=== PATIENT | female | born 1975 | race Caucasian/White ===

== ENCOUNTER 2016-07-09 13:11 | Inpatient (IN) | payer OTHER ==
--- NOTE | ~2016-07-09 | HP ---
History And Physical [facility] [address] [facility] [place]. [address] NAME: HAYLEY MAGAÑA : 73 STATUS : ADM IN [facility]#: [id number] AGE: 40 ADM/REG DATE : 07/09/16 MR#: [id number] REPORT SERV DATE: 07/09/16 DICTATED BY: NATALIIA KUMARI DATE: 07/09/16 REPORT STATUS : Draft TRANSCRIBED BY: DANNY DATE: 07/09/16 DATE OF ADMISSION: 07/09/2016 CHIEF COMPLAINT: Abnormal vaginal bleeding, weakness, symptomatic anemia. HISTORY OF PRESENT ILLNESS: This is a very pleasant 40 years old female, who has no significant past medical history. She though has had experienced heavy periods since October 2015. Her periods are lasting about 10 days every month and for the last couple of weeks, although her cycles are fairly regular, she started to become fatigued, dizzy, somewhat weak, and short of breath with activity and that is getting progressively worse until yesterday when she went to outpatient clinic in [place], [place]. There she has had some lab work, and this has been found to be severely anemic. As a result, the patient has been sent to [facility]. Today, she has been evaluated. She did have an ultrasound of the pelvis as well as transvaginal ultrasound as well showing 6.1 cm hypoechoic vascular mass in the cervix, likely prolapse of cervical fibroid. 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 She has been denying any chest pain or increasing shortness of breath. Currently, no PND or orthopnea. She does not have any nausea or vomiting. No diarrhea or constipation. No other complaints. PAST MEDICAL HISTORY: None. PAST SURGICAL HISTORY: [place] teeth removal. SOCIAL HISTORY: She is a smoker, half pack a day for 10 years. ETOH occasionally. No IV drugs. ALLERGIES: SHE DOES NOT HAVE ANY DRUG ALLERGIES. MEDICATIONS: Home medications include Advil p.r.n. FAMILY HISTORY: Significant for cancer. REVIEW OF SYSTEMS: A 14-point review of system has been obtained and pertinent positive has been listed into the history of present illness. Otherwise, negative except those underlying above. PHYSICAL EXAMINATION: VITAL SIGNS: The patient currently is afebrile. Blood pressure 125/73, heart rate 87, respiratory rate 24, saturating 98% on room air. GENERAL: She is a very pleasant, well-developed, well-nourished female, in no acute distress. She is alert and oriented x3. She is nonfocal. She follows all her commands appropriately. HEENT: Shows pupils equal, round, reactive to light. Pale conjunctivae. No JVD, no lymphadenopathy, no thyromegaly appreciated. CHEST: Eval shows bilateral air entry. Clear anteroposterior. No wheezes, crackles, or History And Physical [address] [address] NAME: HAYLEY MAGAÑA : 73 STATUS : ADM IN [facility]#: [id number] AGE: 40 ADM/REG DATE : 07/09/16 MR#: [id number] REPORT SERV DATE: 07/09/16 DICTATED BY: NATALIIA KUMARI DATE: 07/09/16 REPORT STATUS : Draft TRANSCRIBED BY: DANNY DATE: 07/09/16 rhonchi appreciated. CARDIOVASCULAR: She has regular rate and rhythm. S1, S2 positive. No S3, no S4. No murmurs, rubs, or gallops appreciated. ABDOMEN: Soft with positive bowel sounds. Nontender. No guarding. No rebound. EXTREMITIES: No clubbing, cyanosis, or edema. NEUROLOGY: The patient is alert and oriented x3. She is nonfocal. She follows all her commands appropriately. LABORATORY DATA: Labs from today include sodium 143, potassium 3.4, chloride 111, CO2 of 27, BUN 6, creatinine 0.6, glucose is 93, her ALT is 16, AST is 13. Her HCG has been negative. Her white count is 4, her hemoglobin is 5.2, hematocrit 19.4, and platelets are 391. There is an ultrasound of the pelvis and transvaginal ultrasound as well showing 6.1 cm hypoechoic vascular circumscribed mass in the cervix that could represent fibroid versus cervical neoplasm. ASSESSMENT: This is a 40-year-old female with: 1. Large prolapse circumscribed mass covering from the cervix. 2. Abnormal uterine bleeding. 3. Symptomatic anemia. 4. Hypokalemia. PLAN: 1. The patient is going to be admitted to Hospitalist Service. We are going to transfuse her 3 units of packed red blood cells. H and H q.12 hours and transfuse as indicated. We are going to place her on clear liquid diet and n.p.o. past midnight tonight. Awaiting Dr. Philip's final recommendation. The patient has been seen by Dr. Philip's fellow and already he discussed with the patient hysterectomy, and they will make decision for plan for surgery as per her [facility] [employer]ER. 2. Symptomatic anemia. We are going to check all anemia studies. We are going to transfuse the patient and H and H q.12 hours. 3. Hypokalemia. We are going to replace her potassium as per protocol. We are going to provide reasonable pain and nausea control as well as GI and DVT prophylaxis with SCDs. This has been discussed extensively with the patient. All the questions have been answered in full. Further workup and recommendation pending above. It is also to note that the patient is going to be followed by Hospitalist Service. CF/MODL Nataliia Kumari M.D. / [id number] CC: Dov Calloway DO
--- NOTE | ~2016-07-09 | DS ---
Discharge Summary [facility] [address] [place]. [address] NAME: HAYLEY MAGAÑA : 73 STATUS : DIS IN PAT#: [id number] AGE: 40 ADM/REG DATE : 07/09/16 MR#: [id number] REPORT SERV DATE: 07/12/16 DICTATED BY: WU PATTERSON DATE: 07/11/16 REPORT STATUS : Draft TRANSCRIBED BY: MODL DATE: 07/11/16 ADMISSION DATE: 07/09/2016 DISCHARGE DATE: 07/11/2016 The [employer] system is currently down. HOSPITAL COURSE: This is a 40-year-old, female. She had come in with an unfortunate acute blood loss anemia due to vaginal bleeding for which her hemoglobin initially was near 5.5, got 3 units of blood she went up appropriately to 8.7, now is 8.6. She is a 40-year-old, female. Surgical history; wisdom tooth extraction, hypothyroidism, unclear if she has been on medications as an outpatient, came from her primary care doctor with a hemoglobin of 5.2, heavy periods lasting 10 days every month since October 2015. Unable to function during her periods with four days of presyncope, headaches, dizziness, fatigue. Does not remember last Pap smear, was seen by [facility] noted to have large prolapsed fibroid. She had an ultrasound transvaginally at 6.1 cm hypoechoic circumscribed mass from the cervix. Discussed management options and desired hysterectomy from the patient for definitive relief of symptoms. Dr. Philip was made aware of plan for surgery, then the patient was seen on the 07/10/2016, counseled on warning signs if should prompt return to emergency department such severe bleeding and pain. Most likely had anemia due to fibroids per Dr. Mercado's exam. Follow up Dr. Philip for surgical planning. The patient states she may want to go to [facility] given insurance needs. The patient will get empiric unit of blood prior to discharge given some small spotting. [facility] was okay with discharge. The patient did not have severe bleeding, she got IV iron here as well. I will give her oral iron. Regarding this I suspected she has hypothyroid and she needs to have a TSH and T4 here it is only 3.18. DISCHARGE MEDICATIONS: Iron sulfate 300 mg p.o. t.i.d. with meals. We will give her a unit of blood prior to discharge. FOLLOWUP: Follow up with PCP in two weeks. Follow up with Dr. Philip in one to two weeks. The patient may go to [facility] in [place], the patient voiced that. Defer to [facility] regarding further outpatient management. CONSULTS: [facility]. PROCEDURES: None. DISCHARGE DIAGNOSES: Vaginal bleeding, large prolapsed fibroid possibly is etiology; however, needs to have surgery for definitive therapy and diagnosis. Anemia, acute blood loss anemia. Hypokalemia initially. All questions were answered. It took well over 30 minutes to do. DICTATED BY: Wu Patterson DO Discharge Summary [address] [address] NAME: HAYLEY MAGAÑA : 73 STATUS : DIS IN PAT#: [id number] AGE: 40 ADM/REG DATE : 07/09/16 MR#: [id number] REPORT SERV DATE: 07/12/16 DICTATED BY: WU PATTERSON DATE: 07/11/16 REPORT STATUS : Draft TRANSCRIBED BY: DANNY DATE: 07/11/16 SANDRO/DANNY Wu Patterson DO / [id number] CC: Wu Patterson DO
[2016-07-09 12:19] LABS: BASOPHILS 0.5 %; BASOPHILS ABSOLUTE 0.02 10/3/uL (0.0-0.16); EOSINOPHILS 2.5 %; IMMATURE GRANULOCYTES 0.2 %; IMMATURE GRANULOCYTES ABSOLUTE 0.01 10/3/uL (0.0-0.11); LYMPHOCYTES 25.4 %; LYMPHOCYTES ABSOLUTE 1.02 10/3/uL (0.67-4.30); MEAN CORPUS HGB CONC 26.8 g/dL (32.0-36.0); MEAN CORPUSCULAR HEMOGLOB 18.1 pg (26.0-34.0); MEAN CORPUSCULAR VOLUME 67.4 fL (80-100); MEAN PLATELET VOLUME 7.8 fL (9.2-13.0); MONOCYTES 7.7 %; MONOCYTES ABSOLUTE 0.31 10/3/uL (0.21-1.20); NEUTROPHILS 63.7 %; NEUTROPHILS ABSOLUTE 2.55 10/3/uL (2.02-8.40); PLATELET COUNT 391 10/3/uL (150-400); RBC DISTRIBUTION WIDTH 20.8 % (12.0-16.0); RED CELL COUNT 2.88 10/6/uL (4.0-5.6)
[2016-07-09 12:20] LABS: HEMATOCRIT 19.4 % (36.0-48.0); HEMOGLOBIN 5.2 g/dL (12.0-16.0); MANUAL DIFF NO %
[2016-07-09 12:32] LABS: A/G RATIO 1.2 (0.7-1.9); ALBUMIN 3.8 G/DL (3.5-5.0); ALKALINE PHOSPHATASE 63 U/L (45-117); BUN (BLOOD UREA NITROGEN) 6 MG/DL (6-23); CALCIUM, SERUM 8.8 MG/DL (8.5-10.4); CHLORIDE, SERUM 111 MMOL/L (96-112); CO2 (CARBON DIOXIDE) 27 MMOL/L (24-34); CREATININE 0.61 MG/DL (0.55-1.02); GFR AFRICAN AMERICAN 131 ML/MIN (>=60); GFR NON AFRICAN AMERICAN 113 ML/MIN (>=60); GLOBULIN 3.3 G/DL (2.5-4.1); GLUCOSE, SERUM 93 MG/DL (60-99); POTASSIUM, SERUM 3.4 MMOL/L (3.5-5.3); SGOT(AST) 13 U/L (5-40); SGPT(ALT) 16 U/L (5-65); SODIUM, SERUM 143 MMOL/L (135-148); TOTAL BILIRUBIN 0.3 MG/DL (0-1.2); TOTAL PROTEIN 7.1 G/DL (6.0-8.5)
[2016-07-09 12:36] LABS: ACANTHOCYTES OCC (0-2/OIF); ANISOCYTOSIS 1+ (5-10/OIF) (0-5/OIF); HYPOCHROMIA 3+ (>30/OIF) (0-2/OIF); OVALOCYTES 1+ (3-10/OIF) (0-2/OIF); PLATELET ESTIMATE ADQ (ADEQUATE); RBC MORPHOLOGY ABN (NORMAL)
[2016-07-09] MEDS ORDERED: IBU400 PO (17:13)
[2016-07-10 02:13] LABS: BASOPHILS 0.8 %; BASOPHILS ABSOLUTE 0.04 10/3/uL (0.0-0.16); EOSINOPHILS 2.9 %; EOSINOPHILS ABSOLUTE 0.15 10/3/uL (0.0-0.53); IMMATURE GRANULOCYTES 0.2 %; IMMATURE GRANULOCYTES ABSOLUTE 0.01 10/3/uL (0.0-0.11); LYMPHOCYTES 29.7 %; LYMPHOCYTES ABSOLUTE 1.52 10/3/uL (0.67-4.30); MEAN PLATELET VOLUME 8.5 fL (9.2-13.0); MONOCYTES 10.2 %; MONOCYTES ABSOLUTE 0.52 10/3/uL (0.21-1.20); NEUTROPHILS 56.2 %; NEUTROPHILS ABSOLUTE 2.88 10/3/uL (2.02-8.40); PLATELET COUNT 289 10/3/uL (150-400); RBC DISTRIBUTION WIDTH 21.3 % (12.0-16.0); WHITE BLOOD CELLS 5.1 10/3/uL (4.5-10.5)
[2016-07-10 02:18] LABS: HEMATOCRIT 28.3 % (36.0-48.0); HEMOGLOBIN 8.7 g/dL (12.0-16.0); MEAN CORPUSCULAR HEMOGLOB 22.9 pg (26.0-34.0); MEAN CORPUSCULAR VOLUME 74.5 fL (80-100)
[2016-07-10 02:19] LABS: MANUAL DIFF NO %; MEAN CORPUS HGB CONC 30.7 g/dL (32.0-36.0)
[2016-07-10 02:21] LABS: INTERNATIONAL NORMAL RATI 1.2 UNITS (-); PARTIAL THROMBO TIME 26.3 SEC (22.5-37.2); PROTIME (NOT ORD) 14.9 SEC (12.0-14.5)
[2016-07-10 02:58] LABS: ANISOCYTOSIS 1+ (5-10/OIF) (0-5/OIF); MICROCYTES 1+ (5-10/OIF) (0-5/OIF); PLATELET ESTIMATE ADQ (ADEQUATE)
[2016-07-10 02:59] LABS: ELLIPTOCYTES 1+ (3-10/OIF) (0-2/OIF); HYPOCHROMIA 1+ (3-10/OIF) (0-2/OIF); RBC MORPHOLOGY ABN (NORMAL); TEARDROP SHAPED RBCS OCC (0-2/OIF)
[2016-07-10 03:01] LABS: BUN (BLOOD UREA NITROGEN) 6 MG/DL (6-23); CALCIUM, SERUM 8.6 MG/DL (8.5-10.4); CHLORIDE, SERUM 116 MMOL/L (96-112); CO2 (CARBON DIOXIDE) 23 MMOL/L (24-34); CREATININE 0.57 MG/DL (0.55-1.02); FERRITIN 3 NG/ML (8-252); FREE T4 1.07 NG/DL (0.76-1.46); GFR AFRICAN AMERICAN 133 ML/MIN (>=60); GFR NON AFRICAN AMERICAN 115 ML/MIN (>=60); GLUCOSE, SERUM 87 MG/DL (60-99); IRON BINDING CAPACITY 429 MCG/DL (225-410); IRON, SERUM 401 MCG/DL (35-150); PHOSPHORUS, SERUM 2.1 MG/DL (2.5-4.5); SODIUM, SERUM 145 MMOL/L (135-148)
[2016-07-10 03:02] LABS: FOLATE 17.6 NG/ML (>5.2); POTASSIUM, SERUM 4.2 MMOL/L (3.5-5.3)
[2016-07-10 09:11] LABS: HEMATOCRIT 29.7 % (36.0-48.0); HEMOGLOBIN 9.1 g/dL (12.0-16.0)
[2016-07-10 21:02] LABS: HEMATOCRIT 30.8 % (36.0-48.0); HEMOGLOBIN 9.4 g/dL (12.0-16.0)
[2016-07-11 05:00] LABS: BASOPHILS 0.4 %; BASOPHILS ABSOLUTE 0.02 10/3/uL (0.0-0.16); EOSINOPHILS 3.4 %; EOSINOPHILS ABSOLUTE 0.17 10/3/uL (0.0-0.53); HEMOGLOBIN 8.5 g/dL (12.0-16.0); IMMATURE GRANULOCYTES 0.4 %; IMMATURE GRANULOCYTES ABSOLUTE 0.02 10/3/uL (0.0-0.11); LYMPHOCYTES 46.9 %; LYMPHOCYTES ABSOLUTE 2.36 10/3/uL (0.67-4.30); MEAN CORPUS HGB CONC 30.8 g/dL (32.0-36.0); MEAN CORPUSCULAR HEMOGLOB 22.7 pg (26.0-34.0); MEAN CORPUSCULAR VOLUME 73.8 fL (80-100); MEAN PLATELET VOLUME 8.9 fL (9.2-13.0); MONOCYTES 6.8 %; MONOCYTES ABSOLUTE 0.34 10/3/uL (0.21-1.20); NEUTROPHILS 42.1 %; NEUTROPHILS ABSOLUTE 2.12 10/3/uL (2.02-8.40); PLATELET COUNT 291 10/3/uL (150-400); RBC DISTRIBUTION WIDTH 21.4 % (12.0-16.0); RED CELL COUNT 3.74 10/6/uL (4.0-5.6)
[2016-07-11 05:01] LABS: HEMATOCRIT 27.6 % (36.0-48.0); MANUAL DIFF NO %
[2016-07-11 05:11] LABS: BUN (BLOOD UREA NITROGEN) 3 MG/DL (6-23); CALCIUM, SERUM 8.6 MG/DL (8.5-10.4); CHLORIDE, SERUM 113 MMOL/L (96-112); CO2 (CARBON DIOXIDE) 24 MMOL/L (24-34); CREATININE 0.52 MG/DL (0.55-1.02); GFR AFRICAN AMERICAN 138 ML/MIN (>=60); GFR NON AFRICAN AMERICAN 119 ML/MIN (>=60); SODIUM, SERUM 144 MMOL/L (135-148)
[2016-07-11 05:17] LABS: GLUCOSE, SERUM 105 MG/DL (60-99); PHOSPHORUS, SERUM 3.1 MG/DL (2.5-4.5); POTASSIUM, SERUM 3.6 MMOL/L (3.5-5.3)
[2016-07-11 07:01] LABS: ANISOCYTOSIS 1+ (5-10/OIF) (0-5/OIF); MICROCYTES 1+ (5-10/OIF) (0-5/OIF); PLATELET ESTIMATE ADQ (ADEQUATE); RBC MORPHOLOGY ABN (NORMAL)
[2016-07-11 08:25] LABS: HEMATOCRIT 27.8 % (36.0-48.0); HEMOGLOBIN 8.5 g/dL (12.0-16.0)
[2016-07-11] MEDS ORDERED: FOLIC PO (15:08)
[2016-07-11] MEDS ORDERED: MULTIVITAMI1 PO (15:09)
[2016-07-11] MEDS ORDERED: FESO4 PO (15:10)
== END 2016-07-11 22:25 | disposition home or self-care (01) | DRG 812 ==
LOC: ER 13:11 → 4SO 18:32
PROVIDERS: Emergency Medicine; Internal Medicine
PROC: 30233N1 Transfusion of Nonautologous Red Blood Cells into Peripheral Vein, Percutaneous Approach (ICD-10-PCS; principal; 2016-07-09)
DX: D62 Acute posthemorrhagic anemia (principal); D25.9 Leiomyoma of uterus, unspecified; N93.8 Other specified abnormal uterine and vaginal bleeding; E87.6 Hypokalemia; R53.1 Weakness; F17.210 Nicotine dependence, cigarettes, uncomplicated; E03.9 Hypothyroidism, unspecified
CPT/HCPCS: 36415; 36430; 71010; 76830; 76856; 80048; 80053; 82607; 82728; 82746; 83540; 83550; 83615; 83735; 84100; 84439; 84443; 84703; 85014; 85018; 85025; 85610; 85730; 86850; 86900; 86901; 86920; 93005; 99285; A9270-GY; J1750; P9016